=== PATIENT | male | born 1960 | race Asian ===

== ENCOUNTER → 2017-04-11 | Outpatient (CLI) | payer BC ==
--- NOTE | 2017-04-11 10:35 | DIAGNOSTIC IMAGING REPORT ---
ABDOMEN COMPLETE (US) HISTORY: Pain ABD PAIN. COMPARISON: 01/03/2014 FINDINGS: Pancreas: The pancreas demonstrates a normal echotexture. Liver: Moderate in homogeneity suggesting a component of fatty infiltration. Gallbladder: No gallbladder wall thickening. No gallstones. CBD: 5 mm Kidneys: No hydronephrosis. Spleen: Normal in size. Aorta: Normal in caliber. IVC: Patent. IMPRESSION: Fatty infiltration of the liver. Otherwise negative study. The above report was generated using voice recognition software. It may contain grammatical, syntax or spelling errors. Electronically signed by: Jeff Kim M.D. 04/11/2017 10:34 AM Dictated Date/Time: 04/11/2017 10:13 AM
== END | disposition home or self-care (01) ==
LOC: C.ULTR 09:10
PROVIDERS: ATTEND Family Medicine
DX: R10.9 Unspecified abdominal pain (principal); K76.0 Fatty (change of) liver, not elsewhere classified